=== PATIENT | female | born 1995 | race Caucasian/White ===

== ENCOUNTER 2018-04-21 15:58 | Outpatient (REF) | payer OTHER, SELFPAY ==
--- NOTE | 2018-04-21 15:00 | PAPFT_PTH ---
PATIENT: Sarah Anderson LOC: [facility] U#:[id number] AGE/SX: 23/F ROOM: RE04/21/[address]: Brionna Villalba NP : 1995 BED: DIS: 04/21/2018 SPEC #: [id number] RECD: 04/21/18 17:35 STATUS: ELIJAH MARIN #: [id number] LYNN: 04/21/18 15:[address]: Brionna Villalba NP DEPT: [facility] Cytology RECD BY: Ami Juarez ENTERED: 04/21/18 17:35 SP TYPE: PAPFT ISSAC DR: Nathan Burgos Tissues: 1 - CX/ENDOCX FOR PAP SMEARS Procedures: PAP THIN PREP/UVM Screening Comments: [id number] (CHLAMYDIA/GC)
[2018-04-24 13:56] LABS: Chlamydia Result Negative; GC Result Negative; Specimen Description SEE COMMENTS
== END 2018-04-21 16:18 ==
LOC: LBN 15:58
PROVIDERS: PCP Physician Assistant Medical; Visit Provider Nurse Practitioner Women's Health
DX: Z11.3 Encounter for screening for infections with a predominantly sexual mode of transmission (principal); Z12.4 Encounter for screening for malignant neoplasm of cervix; Z11.51 Encounter for screening for human papillomavirus (HPV)
CPT/HCPCS: 87491; 87591; 88142

== ENCOUNTER 2018-06-08 15:39 | Outpatient (REF) | payer OTHER, SELFPAY | END 2018-06-08 15:59 | LOC: LBN 15:39 | PROVIDERS: PCP Physician Assistant Medical; Visit Provider Nurse Practitioner Women's Health | DX: N76.0 Acute vaginitis (principal) | CPT/HCPCS: 87480; 87510; 87660 ==

== ENCOUNTER 2018-06-08 16:09 | Outpatient (REF) | payer OTHER, SELFPAY | END 2018-06-08 16:29 | LOC: LBN 16:09 | PROVIDERS: PCP Physician Assistant Medical; Visit Provider Nurse Practitioner Women's Health | DX: R30.0 Dysuria (principal) | CPT/HCPCS: 87086 ==

== ENCOUNTER 2018-06-20 00:30 | Outpatient (CLI) | payer OTHER, SELFPAY ==
--- NOTE | 2018-06-20 12:37 | DI.US_ITS ---
SYMPTOMS/DIAGNOSIS: PELVIC PAIN, PERINEAL PAIN, R10.2 PELVIC ULTRASOUND: The uterus measures 6.7 cm in length, 3.5 cm in height and 4.5 cm in width with an endometrial stripe thickness of 2.8 mm. The right ovary measures 2.2 x 1.0 x 1.2 cm, the left ovary 2.0 x 0.9 x 1.6 cm. There is no evidence of free pelvic fluid. Kidneys are unremarkable. The right kidney measures 10.9, the left kidney 11.1 cm. SUMMARY: Normal pelvic ultrasound.
== END 2018-06-20 00:50 ==
PROVIDERS: PCP Physician Assistant Medical; Visit Provider Nurse Practitioner Women's Health
DX: R10.2 Pelvic and perineal pain (principal)
CPT/HCPCS: 76830; 76856

== ENCOUNTER 2019-07-05 11:41 | Outpatient (REF) | payer BC, SELFPAY ==
--- NOTE | 2019-07-05 10:30 | PAPFT_PTH ---
PATIENT: Sarah Anderson LOC: [facility] U#:[id number] AGE/SX: 24/F ROOM: RE07/05/[address]: PETER Sellers : 1995 BED: DIS: 07/05/2019 SPEC #: [id number] RECD: 07/05/19 12:45 STATUS: ELIJAH REQ #: [id number] LYNN: 07/05/19 10:[address]: Minal Clements DEPT: [facility] Cytology RECD BY: Daniel Hanson ENTERED: 07/05/19 12:46 SP TYPE: PAPFT OTHR DR: Nathan Burgos Tissues: 1 - CX/ENDOCX FOR PAP SMEARS Procedures: PAP THIN PREP/UVM Screening Comments: [id number]
[2019-07-06 14:20] LABS: Chlamydia Result Negative (Negative); GC Result Negative (Negative)
== END 2019-07-05 12:01 ==
LOC: LBN 11:41
PROVIDERS: PCP Physician Assistant Medical; Visit Provider Nurse Practitioner Family
DX: Z11.3 Encounter for screening for infections with a predominantly sexual mode of transmission (principal); Z12.4 Encounter for screening for malignant neoplasm of cervix
CPT/HCPCS: 87491; 87591; 88142

== ENCOUNTER 2020-07-11 13:58 | Outpatient (REF) | payer OTHER, BC, SELFPAY ==
[2020-07-14 15:06] LABS: Chlamydia Result Negative (Negative); GC Result Negative (Negative)
== END 2020-07-11 13:59 | disposition home or self-care (01) ==
LOC: LBN 13:58
PROVIDERS: PCP Family Medicine; Visit Provider Nurse Practitioner Family
DX: Z11.3 Encounter for screening for infections with a predominantly sexual mode of transmission (principal)
CPT/HCPCS: 87491; 87591

== ENCOUNTER 2021-08-14 11:19 | Outpatient (REF) | payer OTHER, SELFPAY ==
--- NOTE | 2021-08-14 10:30 | PAPFT_PTH ---
PATIENT: Sarah Anderson LOC: [facility] U#:[id number] AGE/SX: 26/F ROOM: RE08/14/[address]: PETER Sellers : 1995 BED: DIS: 08/14/2021 SPEC #: [id number] RECD: 08/14/21 12:54 STATUS: ELIJAH REKayli #: [id number] LYNN: 08/14/21 10:[address]: Minal Clements DEPT: [facility] Cytology RECD BY: Ami Juarez ENTERED: 08/14/21 12:54 SP TYPE: PAPFT OTHR DR: Danica Herman V Tissues: 1 - CX/ENDOCX FOR PAP SMEARS Procedures: PAP THIN PREP/UVM Screening Comments: [id number]
--- OUTSIDE RECORDS SUMMARY | 2021-08-14 11:25 | XMS_ITS ---
:1995 Author Care Team Providers Name Role Phone DR. COREY KAYE Primary Care Provider [phone] DR. COREY KAYE Referring Provider [phone] Allergies None recorded. Medications None recorded. Problems None recorded. Procedures None recorded. Results Lab Results None recorded. Past Encounters 02/02/2021 Exposure to SARS-CoV-2; Viral Upper Resp iratory Tract Infection Corey Kaye MD: [address] [place] [phone], Ph. 01/07/2021 Exposure to SARS-CoV-2 Corey Kaye MD: [address] [place] [phone], Ph. 12/25/2020 Exposure to SARS-CoV-2 Corey Kaye MD: [address] [place] [phone], Ph. 04/28/2020 Exposure to SARS-CoV-2; Upper Respirator y Infection Corey Kaye MD: [address] [place] [phone], Ph. Social History None recorded. Vaccine List None recorded. Plan of Care Reminders Provider Appointments None recorded. ? ? Lab None recorded. ? ? Referral None recorded. ? ? Procedures None recorded. ? ? Surgeries None recorded. ? ? Imaging None recorded. ? ? Vitals None recorded.
[2021-08-17 15:37] LABS: Chlamydia Result Negative (Negative); GC Result Negative (Negative)
== END 2021-08-14 11:20 | disposition home or self-care (01) ==
LOC: LBN 11:19
PROVIDERS: PCP Family Medicine; Visit Provider Nurse Practitioner Family
DX: Z11.3 Encounter for screening for infections with a predominantly sexual mode of transmission (principal); Z12.4 Encounter for screening for malignant neoplasm of cervix
CPT/HCPCS: 87491; 87591; 88142

== ENCOUNTER 2021-09-25 21:46 | Outpatient (REF) | payer OTHER, SELFPAY ==
[2021-09-25 15:50] LABS: Abs Immature Grans 0.01 10^3/uL (0.0-0.06); Absolute Basophil Count 0.04 10^3/uL (0.0-0.2); Absolute Lymphocyte Count 1.48 10^3/uL (1.2-3.4); Absolute Monocyte Count 0.52 10^3/uL (0.1-0.8); Absolute Neutrophil Count 3.53 10^3/uL (1.2-6.7); Basophils % 0.7; Eosinophils % 1.8; HCT 38.8 % (36.0-46.0); HGB 13.4 g/dL (11.2-15.7); Immature Grans % 0.2; Lymphocytes % 26.1; MCH 33.6 pg (27.0-33.0); MCHC 34.5 % (32.0-36.0); MCV 97 fL (80-95); MPV 10.8 fL (8.0-11.0); Monocytes % 9.2; Platelet Count 281 10^3/uL (130-400); RBC 3.99 10^6/uL (3.93-5.22); RDW 13.1 % (11.7-14.6); RDW-SD 47.1 fL; WBC 5.68 10^3/uL (4.4-10.8)
[2021-09-25 16:13] LABS: ALT 21 U/L (14-59); AST 15 U/L (15-37); Albumin 3.9 g/dL (3.4-5.0); Alkaline Phosphatase 69 U/L (46-116); Anion Gap 8.2 mmol/L (3-11); BUN 11 mg/dL (7-18); Bilirubin, Total 0.4 mg/dL (0.2-1.0); CO2 25.8 mmol/L (21.0-32.0); CREATININE 0.9 mg/dL (0.55-1.02); Calcium 8.8 mg/dL (8.5-10.1); Chloride 106 mmol/L (98-107); Glucose 92 mg/dL (74-106); Potassium 3.9 mmol/L (3.5-5.1); Sodium 140 mmol/L (136-145); TSH (W/Ref FT4) 1.92 uIU/mL (0.36-3.74); Total Protein 7.6 g/dL (6.4-8.2)
== END 2021-09-25 21:47 | disposition home or self-care (01) ==
LOC: NCHCN 21:46
PROVIDERS: PCP Family Medicine; Visit Provider Physician Assistant Medical
DX: R53.83 Other fatigue (principal); R53.81 Other malaise
CPT/HCPCS: 80053; 84443; 85025

== ENCOUNTER 2022-11-16 16:20 | Outpatient (REF) | payer OTHER, SELFPAY ==
[2022-11-18 15:05] LABS: Chlamydia Result Negative (Negative); GC Result Negative (Negative)
== END 2022-11-16 16:21 | disposition home or self-care (01) ==
LOC: LBN 16:20
PROVIDERS: PCP Family Medicine; Visit Provider Nurse Practitioner Women's Health
DX: N76.0 Acute vaginitis (principal); Z11.3 Encounter for screening for infections with a predominantly sexual mode of transmission
CPT/HCPCS: 87491; 87591; 87480; 87510; 87660

== ENCOUNTER 2022-11-19 03:58 | Outpatient (CLI) | payer OTHER, SELFPAY ==
[2022-11-21 13:30] LABS: HIV-1/2 Ag & Ab Screen Negative (Negative)
[2022-11-22 10:46] LABS: Hepatitis C Ab w Rflx HCV PCR Negative (Negative)
[2022-11-23 13:05] LABS: Syphilis IgG w/Reflex Nonreactive (Nonreactive)
== END 2022-11-19 03:59 | disposition home or self-care (01) ==
LOC: LBO 04:00
PROVIDERS: PCP Family Medicine; Visit Provider Nurse Practitioner Women's Health
DX: Z11.3 Encounter for screening for infections with a predominantly sexual mode of transmission (principal); Z11.4 Encounter for screening for human immunodeficiency virus [HIV]; Z11.59 Encounter for screening for other viral diseases
CPT/HCPCS: 36415; 86803; 87389; 86780

== ENCOUNTER 2024-03-20 14:03 | Outpatient (REF) | payer BC, SELFPAY ==
--- NOTE | 2024-03-20 13:20 | PAPFT_PTH ---
PATIENT: Sarah Anderson LOC: [facility] U#:[id number] AGE/SX: 29/F ROOM: RE03/20/[address]: Brionna Villalba NP : 1995 BED: DIS: 03/20/2024 SPEC #: [id number] RECD: 03/20/24 17:35 STATUS: ELIJAH REKayli #: [id number] LYNN: 03/20/24 13:[address]: Brionna Villalba NP DEPT: [facility] Cytology RECD BY: Ami Juarez ENTERED: 03/20/24 17:35 SP TYPE: PAPFT OTHR DR: Danica Herman V Tissues: 1 - CX/ENDOCX FOR PAP SMEARS Procedures: PAP THIN PREP/UVM Screening HPV DNA PROBE Comments: [id number] (HPV 16 & 18/45) (CHLAMYDIA/GC)
[2024-03-21 12:50] LABS: Chlamydia Result Negative (Negative); GC Result Negative (Negative)
== END 2024-03-20 14:04 | disposition home or self-care (01) ==
LOC: LBN 14:03
PROVIDERS: PCP Family Medicine; Visit Provider Nurse Practitioner Women's Health
DX: N89.8 Other specified noninflammatory disorders of vagina (principal); Z30.9 Encounter for contraceptive management, unspecified; N83.202 Unspecified ovarian cyst, left side; Z01.419 Encounter for gynecological examination (general) (routine) without abnormal findings; A60.04 Herpesviral vulvovaginitis; Z12.4 Encounter for screening for malignant neoplasm of cervix
CPT/HCPCS: 87491; 87591; 88142; 87480; 87510; 87624; 87660

== ENCOUNTER 2024-04-16 18:01 | Outpatient (REF) | payer BC, SELFPAY ==
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
[2024-04-16 19:43] LABS: TSH (W/Ref FT4) 2.26 uIU/mL (0.36-3.74); Vitamin D 25 Total 26.3 ng/mL (30-100)
[2024-04-17 19:31] LABS: Hepatitis C Ab w Rflx HCV PCR Negative (Negative)
[2024-04-17 19:35] LABS: HIV-1/2 Ag & Ab Screen Negative (Negative)
== END 2024-04-16 18:02 | disposition home or self-care (01) ==
LOC: NCHCN 18:01
PROVIDERS: PCP Family Medicine; Visit Provider Physician Assistant Medical
DX: F41.9 Anxiety disorder, unspecified (principal); Z11.3 Encounter for screening for infections with a predominantly sexual mode of transmission
CPT/HCPCS: 82306; 86803; 87389; 84443